=== PATIENT | female | born 1985 | race Hispanic/Latino ===

== ENCOUNTER 2020-07-01 09:38 | Emergency (ER) | payer OTHER, SELFPAY ==
[2020-07-01] MEDS ORDERED: KETOROLAC 60 MG VIAL (30MG/ML) ONE (10:42)
== END 2020-07-01 11:19 | disposition home or self-care (01) ==
LOC: EDH 09:38
DX: K04.7 Periapical abscess without sinus (principal); E11.9 Type 2 diabetes mellitus without complications
CPT/HCPCS: 96372; 99283; J1885

== ENCOUNTER 2021-08-19 16:54 | Emergency (ER) | payer OTHER, SELFPAY ==
[~2021-08-19] VITALS: Ht 152.4 cm; Wt 67.1 kg
[2021-08-19] MEDS ORDERED: IBUPROFEN 600 MG TABLET ONE (18:59)
[2021-08-19] MEDS ORDERED: IBUPROFEN 600 MG TABLET PO ONE (19:00)
[2021-08-19] MEDS ORDERED: IBUP-2070 PO (19:38)
[2021-08-19 19:46] VITALS: BP 130/68
== END 2021-08-19 19:50 | disposition home or self-care (01) ==
LOC: EDH 16:54
DX: M54.2 Cervicalgia (principal); E11.9 Type 2 diabetes mellitus without complications; Z79.1 Long term (current) use of non-steroidal anti-inflammatories (NSAID); V49.49XA Driver injured in collision with other motor vehicles in traffic accident, initial encounter; Y93.89 Activity, other specified; Y92.89 Other specified places as the place of occurrence of the external cause; Y99.8 Other external cause status
CPT/HCPCS: 72125